=== PATIENT | male | born 1935 | race African-American/Black ===

== ENCOUNTER 2018-03-18 13:51 | Emergency (ER) | payer MEDICARE, OTHER ==
[~2018-03-18] VITALS: Ht 188 cm; Wt 92.5 kg
[~2018-03-18 13:51] MED LIST: AMLODIPINE BESYL5 MG ORAL; AVODART0.5 MG ORAL; FLOMAX0.4 MG ORAL; NORCO 5-325 TA1 EACH ORAL; PLAVIX75 MG ORAL; ULORIC40 MG ORAL
[2018-03-18 13:57] VITALS: BP 122/67
[2018-03-18] MEDS ORDERED: IBUPROFEN600 MG ORAL (14:24)
--- NOTE | 2018-03-18 14:26 | Emergency Room Report ---
History of Present Illness General Chief Complaint: Pain Source: Patient Present Illness HPI 82-year-old male patient presents to ER complaining of pain and swelling and left foot and ankle. Reports pain symptoms present for the past 2 weeks. Reports history of similar symptoms in the past. Reports history of gout and arthritis. States that he was seen by his doctor a few days ago and told his arthritis problem, states was not provided with any pain medication at that time. States history of similar symptoms in the past with cortisone injections from research computing specialist, awaiting referral to orthopedic his primary care provider. Currently taking Uloric for gout, told by primary care provider is not gout. states Has not taken any pain medication for relief of ankle swelling. denies recent injury or trauma. Reports soaked in Epsom salts yesterday which provided mild relief of symptoms. denies calf swelling. Denies fever, chest pain or shortness of breath. reports able to ambulate, walks with cane. reports history of flat feet. Reports history of taking Plavix, does not know what is taking Plavix, denies history of stroke or PE or DVT. Allergies: Coded Allergies: No Known Allergies (Unverified , 06/05/13) Patient History Past Medical History: see triage record Reviewed Nursing Documentation: PMH: Agreed; PSxH: Agreed Nursing Documentation-PMH Past Medical History: No History, Except For Hx Cardiac Problems: No - right knee replacement, gout, arthritis Hx Hypertension: Yes Hx Pacemaker: No Hx Asthma: No Hx COPD: No Hx Diabetes: No Hx Cancer: No Hx Gastrointestinal Problems: No Hx Dialysis: No History Of Psychiatric Problem: No Hx Neurological Problems: No Hx Cerebrovascular Accident: No Hx Seizures: No Review of Systems All Other Systems: negative except mentioned in HPI Physical Exam Vital Signs Date Time Temp Pulse Resp B/P (MAP) Pulse Ox O2 Delivery O2 Flow Rate FiO2 03/18/18 13:57 98.1 69 14 122/67 96 Room Air 98.1 Sp02 EP Interpretation: reviewed, normal General Appearance: well appearing, no apparent distress, alert, GCS 15, non- toxic Head: normocephalic, atraumatic Eyes: bilateral eye normal inspection, bilateral eye PERRL ENT: hearing grossly normal, normal pharynx, no angioedema, normal voice, uvula midline, moist mucus membranes Neck: full range of motion Respiratory: lungs clear, normal breath sounds, no rhonchi, no respiratory distress, no accessory muscle use, no wheezing, speaking full sentences Cardiovascular #1: regular rate, rhythm, no edema Cardiovascular #2: 2+ dorsalis pedis (R), 2+ dorsalis pedis (L) Musculoskeletal: back normal, digits/nails normal, gait/station normal, normal range of motion, non-tender, no calf tenderness, Shahid's Sign negative, swelling - lateral left ankle and dorsum of midfoot, other - NVI, negative syndesmotic squeeze test, no gouty tophi, pes planus, no erythema or ecchymosis Neurologic: alert, oriented x3, responsive, motor strength/tone normal, sensory intact Psychiatric: mood/affect normal Skin: no rash Medical Decision Making PA Attestation Dr. Joya is my supervising Physician whom patient management has been discussed with. Diagnostic Impression: Primary Impression: Arthritis ER Course Pt. presents to the ED c/o left ankle and foot pain and swelling. Ddx considered but are not limited to sprain, strain, contusion, gout, arthritis , cellulitis. denies chest pain, shortness of breath, hemoptysis, calf Swelling, negative Homans sign, suspicion for DVT at this time. Does not require imaging or labs at this time. Vital signs: are WNL, pt. is afebrile ER COURSE: on physical exam, patient has low arches consistent with pes planus, mild swelling and pain noted over dorsum of midfoot and ankle no redness or warmth, no gouty tophi. no recent injury or trauma, does not require imaging, low suspicion for fracture. Will wrap foot and provide pain medication in ER. SMUI wrapped foot, checked by me afterwards, neurovascularly intact. Advised on RICE: rest, ice, compression., elevation. patient walks with cane, declined need for crutches. Followup with PCP and ortho to discuss pain treatment, discuss further referral to pain management. Will provide contact information for podiatry. Followup at scheduled appoint with PCP and discuss ortho referral. Discuss referral to PT and pain management at that time. Discuss need for further imaging. DISCHARGE: RX provided for ibuprofen, states has taken ibuprofen in the past before for similar symptoms. At this time pt is stable for d/c to home. Patient is resting comfortably, in no acute distress, nontoxic appearing, talking without difficulty. Patient to take medications as instructed Will provide with patient care instructions and any necessary prescriptions. Care plan and follow-up instructions provided. Patient instructed to follow-up with primary care provider in 3 - 5 days. Patient questions asked and answered. Patient reports understanding and agreement to treatment plan. ER precautions given. Patient instructed to return to ER immediately for any new or worsening of symptoms including but not limited to increasing SOB, persistent fever, chest pain, intractable vomiting. - Please note that this Emergency Department Report was dictated using [employer][email or web address] blindstitch technology software, occasionally this can lead to erroneous entry secondary to interpretation by the dictation equipment. Last Vital Signs Date Time Temp Pulse Resp B/P (MAP) Pulse Ox O2 Delivery O2 Flow Rate FiO2 03/18/18 13:57 98.1 69 14 122/67 96 Room Air 98.1 Disposition: HOME, SELF-CARE Condition: Stable Scripts Ibuprofen* (MOTRIN*) 600 Mg Tablet 600 MG ORAL Q8H PRN for For Pain, #30 TAB 0 Refills Prov: Liam Leslie 03/18/18 Patient Instructions: Ankle Pain, Arthritis, [id number] Additional Instructions: Patient instructed to follow up with primary care provider and discuss further referral to orthopedics. Patient instructed on RICE method: rest, ice, compression, elevation. Patient instructed to WBAT. Take medications as directed. Patient questions asked and answered. ER precautions given, patient instructed to return to ER immediately for any new or worsening of symptoms. Liam Leslie Mar 18, 2018 14:26
[2018-03-18 14:38] VITALS: BP 122/67
== END 2018-03-18 14:40 | disposition home or self-care (01) ==
LOC: EMR 14:24
DX: M19.072 Primary osteoarthritis, left ankle and foot (principal); M10.9 Gout, unspecified; F17.200 Nicotine dependence, unspecified, uncomplicated; Z96.651 Presence of right artificial knee joint
CPT/HCPCS: 99283